=== PATIENT | female | born 2000 | race American Indian/Alaskan Native ===

== ENCOUNTER 2020-06-17 21:19 | Emergency (ER) | payer SELFPAY ==
[2020-06-17 21:58] VITALS: BP 137/88
[2020-06-17 22:00] LABS: Basophils % (Auto) 0.3 % (0.0-1.8); Hematocrit 24.7 % (30.3-42.9); Hemoglobin 7.6 gm/dl (10.1-14.3); Lymphocytes # (Auto) 2.1 K/mm3 (1.2-5.4); Lymphocytes % (Auto) 20.5 % (13.4-35.0); Mean Corpuscular HGB Conc 31 % (30-34); Monocytes # (Auto) 0.6 K/mm3 (0.0-0.8); Monocytes % (Auto) 5.9 % (0.0-7.3); Platelet Count 450 K/mm3 (140-440); Red Blood Count 3.73 M/mm3 (3.65-5.03); Red Cell Distribution Width 19.2 % (13.2-15.2)
[2020-06-17 22:01] LABS: Mean Corpuscular Volume 66 fl (79-97)
[2020-06-17 22:50] LABS: Alanine Aminotransferase 14 units/L (7-56); Albumin 4.6 g/dL (3.9-5); BUN/Creatinine Ratio 15; Blood Urea Nitrogen 12 mg/dL (7-17); Calcium 9.2 mg/dL (8.4-10.2); Hemolysis Index 2
[2020-06-17 23:09] LABS: Bacteria,Urine 4+ /HPF (Negative); Bilirubin,Urine NEG (Negative); Blood,Urine NEG (Negative); Color,Urine Yellow (Yellow); Mucus,Urine 3+ /HPF; Urobilinogen,Urine < 2.0 mg/dL (<2.0)
[2020-06-18] MEDS ORDERED: MORPHINE 4 MG/1 ML INJ IV STA (01:40)
[2020-06-18] MEDS ORDERED: SODIUM CHLORIDE 0.9% 1000 ML 1,000 ML IV ONE (01:40)
[2020-06-18] MEDS ORDERED: ONDANSETRON 4 MG/2 ML INJ IV STA (01:40)
--- NOTE | 2020-06-18 01:51 | Emergency Department Report ---
ED Abdominal Pain HPI - General Chief Complaint: Abdominal Pain Stated Complaint: RIGHT BOTTOM SIDE HURTS Time Seen by Provider: 06/18/20 01:25 Source: patient Mode of arrival: Ambulatory Limitations: No Limitations - History of Present Illness Initial Comments: 19-year-old [place] female [facility] emerge department complaining of a 3-day history of right lower quadrant melquiades pain associated with some diarrhea which is worse with palpation and certain range of motion. Also with deep breaths causing discomfort to the right lower quadrant as well. She has an unknown status but reports no vomiting or nausea. She reports no vaginal discharge no hematemesis no hematochezia. Complaint: abdominal pain -: Gradual Location: RLQ Radiation: RUQ, RLQ Migration to: RUQ, RLQ Quality: aching, sharp Improves With: nothing Worsens With: movement (Palpation) Associated Symptoms: denies: constipation, dysuria, hematemesis - Related Data Previous Rx's Medication Instructions Recorded Last Taken Type Hyoscyamine Subl [Levsin Sl 0.125 0.125 mg SL Q6HR #14 tab 06/18/20 Unknown Rx TAB] Allergies Allergy/AdvReac Type Severity Reaction Status Date / Time No Known Allergies Allergy Unverified 06/17/20 21:37 ED Review of Systems ROS: Stated complaint: RIGHT BOTTOM SIDE HURTS Other details as noted in HPI Comment: All other systems reviewed and negative ED Past Medical Hx - Past Medical History Previous Medical History?: No - Surgical History Past Surgical History?: No - Social History Smoking Status: Never Smoker Substance Use Type: Alcohol - Medications Home Medications: Home Medications Medication Instructions Recorded Confirmed Last Taken Type Hyoscyamine Subl [Levsin Sl 0.125 0.125 mg SL Q6HR #14 tab 06/18/20 Unknown Rx TAB] ED Physical Exam - General Limitations: No Limitations General appearance: alert, in no apparent distress - Head Head exam: Present: atraumatic, normocephalic - Eye Eye exam: Present: normal appearance, PERRL, EOMI Pupils: Present: normal accommodation - ENT ENT exam: Present: normal exam, mucous membranes moist - Neck Neck exam: Present: normal inspection, full ROM - Respiratory Respiratory exam: Present: normal lung sounds bilaterally. Absent: respiratory distress, wheezes, rales, chest wall tenderness, accessory muscle use - Cardiovascular Cardiovascular Exam: Present: regular rate, normal rhythm. Absent: systolic murmur, diastolic murmur, rubs, gallop - GI/Abdominal GI/Abdominal exam: Present: soft, tenderness (Right lower quadrant with palpation positive tenderness at McBurney's point. No Jacobs sign. Abdomen is not rigid), normal bowel sounds. Absent: guarding, hyperactive bowel sounds, hypoactive bowel sounds, organomegaly - Extremities Exam Extremities exam: Present: normal inspection, normal capillary refill. Absent: full ROM, pedal edema, joint swelling - Back Exam Back exam: Present: normal inspection - Neurological Exam Neurological exam: Present: alert, oriented X3 - Psychiatric Psychiatric exam: Present: normal affect, normal mood - Skin Skin exam: Present: warm, dry, intact, normal color. Absent: rash ED Course Vital Signs 06/17/20 21:30 Temperature 99.0 F Pulse Rate 111 H Respiratory 18 Rate Blood Pressure 137/88 O2 Sat by Pulse 100 Oximetry ED Medical Decision Making - Lab Data Result diagrams: 06/17/20 21:51 06/17/20 21:51 - Radiology Data Radiology results: report reviewed [address] [place] [id number] Cat Scan Report Signed Patient: ROSS GOMEZ R#: [id number] : 2000 Acct:[id number] Age/Sex: 19 / F ADM Date: 06/17/20 Loc: ED Attending Dr: Ordering Physician: LORETA WADE Date of Service: 06/18/20 Procedure(s): CT abdomen pelvis w con Accession Number(s): [id number] cc: LORETA WADE CT OF THE ABDOMEN AND PELVIS WITH INTRAVENOUS CONTRAST INDICATION / CLINICAL INFORMATION: Right lower quadrant pain. TECHNIQUE: The patient received 100 cc Omnipaque [address] scans at this location are performed using CT dose reduction for ALARA by means of automated exposure control. COMPARISON: None available. FINDINGS: ABDOMEN: The liver, spleen, gallbladder, bile ducts, pancreas, adrenal glands, kidneys and bowel demonstrate no significant abnormality. No adenopathy is present. The lung bases are clear. PELVIS: The distal ureters and urinary bladder are normal. There is mild free fluid in the cul-de-sac. The uterus and adnexal regions are unremarkable. A portion of a nor mal appendix is present. I see no evidence of diverticulitis. I do not identify a hernia. The bones are normal. IMPRESSION: 1. Mild free fluid in the cul-de-sac without a cause seen is probably physiologic. 2. No CT evidence of acute appendicitis. Signer Name: Jesus Pérez MD Signed: 06/18/2020 2:47 AM Workstation Name: [id number] Transcribed By: RT Dictated By: Jesus Pérez MD Electronically Authenticated By: Jesus Pérez MD Signed Date/Time: 06/18/20246 DD/ 1 TD/TT: - Medical Decision Making This patient presents with abdominal pain of unclear etiology. A CT scan was performed to evaluate for potential causes of the abdominal pain, however, neither the clinical exam nor the CT has identified an emergent etiology for the abdominal pain. Specifically, given the benign exam, the laboratory studies, and unremarkable CT, I have a very low suspicion for appendicitis, ischemic bowel, bowel perforation, or any other life threatening disease. I have discussed with the patient the level of uncertainty with undifferentiated abdominal pain and clearly explained the need to follow-up as noted on the discharge instructions, or return to the Emergency Department immediately if the pain worsens, develops fever, persistent and uncontrollable vomiting, or for any new symptoms or concerns. Patient presents to the emergency department with nausea, and diarrhea, differential diagnosis includes possible acute gastroenteritis. Abdominal examination without peritoneal signs. Currently patient is euvolemic without evidence of dehydration. No evidence of surgical abdomen or other acute medical emergency including bowel obstruction, viscus perforation, vascular catastrophe, appendicitis, cholecystitis at this time. Presentation not consistent with other acute emergent causes of vomiting and diarrhea at this time. No indication for abdominal imaging Plan supportive care, oral/IV rehydration, antiemetics and reassess Critical care attestation.: If time is entered above; I have spent that time in minutes in the direct care of this critically ill patient, excluding procedure time. ED Disposition Clinical Impression: Abdominal pain, Diarrhea Disposition: - TO HOME OR SELFCARE Is pt being admited?: No Does the pt Need Aspirin: No Condition: Stable Instructions: Abdominal Pain (ED), Gastritis, Adult, Abdominal Pain, Adult, Diarrhea, Adult, [id number] Prescriptions: Hyoscyamine Subl [Levsin Sl 0.125 TAB] 0.125 mg SL Q6HR #14 tab Referrals: [facility] [Provider Group] - 3-5 Days
--- NOTE | 2020-06-18 02:51 | Cat Scan Report ---
CT OF THE ABDOMEN AND PELVIS WITH INTRAVENOUS CONTRAST INDICATION / CLINICAL INFORMATION: Right lower quadrant pain. TECHNIQUE: The patient received 100 cc Omnipaque [address] scans at this location are performed using CT dose reduction for ALARA by means of automated exposure control. COMPARISON: None available. FINDINGS: ABDOMEN: The liver, spleen, gallbladder, bile ducts, pancreas, adrenal glands, kidneys and bowel demo nstrate no significant abnormality. No adenopathy is present. The lung bases are clear. PELVIS: The distal ureters and urinary bladder are normal. There is mild free fluid in the cul-de-sac . The uterus and adnexal regions are unremarkable. A portion of a normal appendix is present. I see n o evidence of diverticulitis. I do not identify a hernia. The bones are normal. IMPRESSION: 1. Mild free fluid in the cul-de-sac without a cause seen is probably physiologic. 2. No CT evidence of acute appendicitis. Signer Name: Jesus Pérez MD Signed: 06/18/2020 2:47 AM Workstation Name: [id number]
== END 2020-06-18 05:25 | disposition home or self-care (01) ==
LOC: ED 21:19
DX: R10.31 Right lower quadrant pain (principal); R19.7 Diarrhea, unspecified; Z79.899 Other long term (current) drug therapy
CPT/HCPCS: 36415; 74177; 80053; 81001; 84703; 85025; 87086; 96361; 96374; 96375; 99284; J2270; J2405; J7030; Q9967